=== PATIENT | female | born 1995 | race Caucasian/White ===

== ENCOUNTER 2017-11-04 23:56 | Emergency (ER) | payer MEDICAID ==
[~2017-11-04] VITALS: Ht 160 cm; Wt 68.0 kg
[2017-11-04 23:59] VITALS: BP_SYST 114
[2017-11-05] MEDS ORDERED: DIPH-TET-PERTUS Vaccine 0.5 ML VIAL (ADACEL) I.M. ONE (00:15)
[2017-11-05 00:37] VITALS: BP_SYST 117
== END 2017-11-05 00:37 | disposition home or self-care (01) ==
LOC: SED 23:56
DX: S70.372A Other superficial bite of left thigh, initial encounter (principal); Y04.1XXA Assault by human bite, initial encounter; Y93.89 Activity, other specified; Y92.89 Other specified places as the place of occurrence of the external cause; Y99.8 Other external cause status
CPT/HCPCS: 90715; 99283